=== PATIENT | male | born 1950 | race Caucasian/White ===

== ENCOUNTER 2020-01-16 06:39 | Emergency (ER) | payer OTHER ==
[~2020-01-16] VITALS: Ht 182.9 cm; Wt 111.1 kg
== END 2020-01-16 08:27 | disposition home or self-care (01) ==
LOC: ER 06:39
DX: L23.7 Allergic contact dermatitis due to plants, except food (principal); I10 Essential (primary) hypertension; Z88.0 Allergy status to penicillin; Z88.5 Allergy status to narcotic agent; Z91.09 Other allergy status, other than to drugs and biological substances
CPT/HCPCS: 96372; 99282; J3301